=== PATIENT | female | born 1990 | race Caucasian/White ===

== ENCOUNTER → 2021-05-14 13:23 | Outpatient (CLI) | payer MEDICAID, SELFPAY ==
--- NOTE | 2021-05-14 14:28 | NEURO ---
NCS and/or EMG Patient Report Ordering Doctor: Jaiden Coronado DATE OF SERVICE: 05/14/21 Indication: Fluctuating numbness, tingling and pain in the right hand (predominately digits 1-3). No localized or radicular neck pain. No clear associated weakness. Evaluate for entrapment neuropathy. Findings: Nerve conduction studies were performed in the right upper extremity. The right median motor study recording the abductor pollicis brevis showed a borderline amplitude, markedly prolonged distal latency and normal conduction velocity. The right ulnar motor study recording the abductor digiti minimi showed a normal amplitude, normal distal latency and normal conduction velocity. No conduction block or focal slowing was present across the elbow. Right median-ulnar lumbrical / interosseous motor latencies showed a prolonged median latency compared to the ulnar. The right median sensory response recording digit two showed a reduced amplitude, markedly prolonged latency and markedly slowed conduction velocity. The right ulnar sensory response recording digit five showed a normal amplitude, latency and conduction velocity. The right radial sensory response recording over the extensor snuff box showed a normal amplitude, latency and conduction velocity. Needle EMG of the right upper extremity was omitted at the patient's request. We discussed that it would provide additional information including the evaluation for the presence of a superimposed cervical radiculopathy or other proximal cause of her symptoms. Given her lack of neck pain she would prefer to hold off on that component of the examination, but return if the ordering provider felt strongly about obtaining it. Impression: This is an abnormal study. 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 The pathophysiology is predominantly demyelination, though there appears to be some secondary axon loss. These findings are compatible with the clinical diagnosis of carpal tunnel syndrome. Berry Justin D.O. [employer] [facility] Neurology Neurology Interp Codes: 66991-30 [facility] test 7-8 studies (interp)
== END ==
PROVIDERS: PCP Family Medicine; Referring Provider Family Medicine; Visit Provider Family Medicine
DX: M79.641 Pain in right hand (principal)
CPT/HCPCS: 95886; 95910